=== PATIENT | male | born 1960 | race Caucasian/White ===

== ENCOUNTER → 2022-06-16 | Outpatient (CLI) | payer OTHER ==
[~2022-06-16] MED LIST: NORMAL SALINE IV ONE; [UNRECOGNIZED DRUG - OTHER] IV ONE
[2022-06-16 13:48] VITALS: BP 105/68
== END ==
LOC: SDC 12:43
PROVIDERS: ATTEND Internal Medicine Gastroenterology
DX: K50.90 Crohn's disease, unspecified, without complications (principal)
CPT/HCPCS: 96365

== ENCOUNTER 2023-10-13 19:58 | Emergency (ER) | payer OTHER ==
[~2023-10-13] VITALS: Ht 177.8 cm; Wt 63.5 kg
[2023-10-13] MEDS ORDERED: NS IV 1000 ML 2,000 ML ONE (20:25)
[2023-10-13] MEDS ORDERED: NS IV 1000 ML 1,000 ML IV STA ×2 (20:25→20:38)
--- NOTE | 2023-10-13 20:29 | ED General ---
General Chief Complaint: Dizziness/Syncope Stated Complaint: SYNCOPAL EPISODE/ABD PAIN Nursing Triage Note: PT ARRIVED POV WITH CC OF SYNCOPAL EPISODE TODAY. PT STATES THAT HE HAS BEEN WEAK AND UNABLE TO EAT. PT WAS DIAGNOSISED WITH PANCREATIC CANCER 2 YEARS AGO. STENT WAS PLACED LAST WEEK AT AND PT WAS DISCHARGED ON MONDAY. Source of Information: Patient, Family (simon) Exam Limitations: No Limitations History of Present Illness Date Seen by Provider: Oct 13, 2023 Time Seen by Provider: 20:21 Initial Comments Patient is a 63-year-old male with a history of pancreatic cancer for the last 3 years, recent stent placement in his pancreas this past week at . His niece is with him in the emergency department and states that she went over to check on him this evening and found that he had fallen. Apparently he had had a syncopal episode. He states he has been weak and unable to eat or drink very much since the stent placement. He states he has been very constipated as well but did have a bowel movement today. He denies black or bloody stool. He has not vomited any blood that he is aware of. He denies productive cough. His main complaint is feeling generally weak, generalized abdominal discomfort. He has not been taking any pain medications at home. According to his niece he was recently on hospice but "fired them" in the last couple of days. Later told his niece that he would like to restart hospice on Monday of next week. He is a DNR/DNI. Timing/Duration: 3-4 Days Severity: Severe Associated Systoms: Loss of Appetite, Malaise, Syncope, Weakness, Other (abdominal pain) Allergies and Home Medications Allergies Coded Allergies: Penicillins (Unverified Allergy, Intermediate, rash, 06/16/22) Patient Home Medication List Home Medication List Reviewed: Yes Ondansetron (Ondansetron Odt) 4 Mg Tab.rapdis, 4 MG SL Q6H PRN for NAUSEA/VOMITING Prescribed by: LOWELL WEINER on 10/13/232201 Review of Systems Review of Systems Constitutional: see HPI, malaise, weakness EENTM: no symptoms reported Respiratory: no symptoms reported Cardiovascular: no symptoms reported Gastrointestinal: abdominal pain, constipation, loss of appetite Genitourinary: no symptoms reported Musculoskeletal: no symptoms reported Skin: no symptoms reported Past Mcjhjme-Amattp-Jgkspn Hx Patient Social History Tobacco Use?: Yes Tobacco type used: Cigarettes Substance use?: No Alcohol Use?: No Past Medical History Surgery/Hospitalization HX: cancer Physical Exam Vital Signs Vital Signs - First Documented 10/13/23 20:16 Pulse 88 B/P (MAP) 76/54 (61) Pulse Ox 98 O2 Delivery Room Air Capillary Refill : Height, Weight, BMI Height: '" Weight: lbs. oz. kg; 20.00 BMI Method: General Appearance: Chronically ill, Thin Eyes: Bilateral Eye Conjunctivae Pale HEENT: Other (dry oral mucosa) Respiratory: Lungs Clear Cardiovascular: Regular Rate, Rhythm, Normal Peripheral Pulses Gastrointestinal: Soft, Tenderness (diffuse mild tenderness; no distension; normnal BS) Extremity: Normal Range of Motion Neurologic/Psychiatric: Alert, Oriented x3, No Motor/Sensory Deficits Skin: Warm/Dry, Pallor Focused Exam Lactate Level 10/13/23 20:15: Lactic Acid Level 1.91 Lactic Acid Level Laboratory Tests Test 10/13/23 20:15 Lactic Acid Level 1.91 MMOL/L (0.50-2.00) Progress/Results/Core Measures Suspected Sepsis SIRS Temperature: Pulse: 88 Respiratory Rate: Laboratory Tests 10/13/23 20:15: White Blood Count 11.0 Blood Pressure 76 /54 Mean: 61 10/13/23 20:15: Lactic Acid Level 1.91 Laboratory Tests 10/13/23 20:15: Creatinine 0.80, INR Comment 1.0, Platelet Count 325, Total Bilirubin 0.4 Results/Orders Lab Results Laboratory Tests Test 10/13/23 20:15 Range/Units White Blood Count 11.0 4.3-11.0 10^3/uL Red Blood Count 2.99 L 4.30-5.52 10^6/uL Hemoglobin 8.2 L 13.3-17.7 g/dL Hematocrit 25 L 40-54 % Mean Corpuscular Volume 84 80-99 fL Mean Corpuscular Hemoglobin 27 25-34 pg Mean Corpuscular Hemoglobin Concent 33 32-36 g/dL Red Cell Distribution Width 15.9 H 10.0-14.5 % Platelet Count 325 130-400 10^3/uL Mean Platelet Volume 10.5 9.0-12.2 fL Immature Granulocyte % (Auto) 0 % Neutrophils (%) (Auto) 60 42-75 % Lymphocytes (%) (Auto) 28 12-44 % Monocytes (%) (Auto) 10 0-12 % Eosinophils (%) (Auto) 1 0-10 % Basophils (%) (Auto) 0 0-10 % Neutrophils # (Auto) 6.7 1.8-7.8 10^3/uL Lymphocytes # (Auto) 3.1 1.0-4.0 10^3/uL Monocytes # (Auto) 1.1 H 0.0-1.0 10^3/uL Eosinophils # (Auto) 0.2 0.0-0.3 10^3/uL Basophils # (Auto) 0.0 0.0-0.1 10^3/uL Immature Granulocyte # (Auto) 0.0 0.0-0.1 10^3/uL Prothrombin Time 13.1 12.2-14.7 SEC INR Comment 1.0 0.8-1.4 Activated Partial Thromboplast Time 36 H 24-35 SEC Sodium Level 132 L 135-145 MMOL/L Potassium Level 3.9 3.6-5.0 MMOL/L Chloride Level 101 98-107 MMOL/L Carbon Dioxide Level 21 21-32 MMOL/L Anion Gap 10 5-14 MMOL/L Blood Urea Nitrogen 16 7-18 MG/DL Creatinine 0.80 0.60-1.30 MG/DL Estimat Glomerular Filtration Rate 99 BUN/Creatinine Ratio 20 Glucose Level 175 H 70-105 MG/DL Lactic Acid Level 1.91 0.50-2.00 MMOL/L Calcium Level 7.9 L 8.5-10.1 MG/DL Corrected Calcium 8.5 8.5-10.1 MG/DL Total Bilirubin 0.4 0.1-1.0 MG/DL Aspartate Amino Transf (AST/SGOT) 28 5-34 U/L Alanine Aminotransferase (ALT/SGPT) 21 0-55 U/L Alkaline Phosphatase 75 40-136 U/L Total Protein 5.8 L 6.4-8.2 GM/DL Albumin 3.2 3.2-4.5 GM/DL My Orders Orders - LOWELL WEINER MD Ns Iv 1000 Ml (Ns Iv 1000 Ml) (10/13/23 20:25) Cbc And Automated Diff (10/13/23 20:25) Comprehensive Metabolic Panel (10/13/23 20:25) Blood Culture (10/13/23 20:25) Sputum Culture (10/13/23 20:25) Urinalysis (10/13/23 20:25) Urine Culture (10/13/23:) Protime With Inr (10/13/23 20:25) Partial Thromboplastin Time (10/13/23 20:25) Chest 1 View, Ap/Pa Only (10/13/23 20:25) Ed Iv/Invasive Line Start (10/13/23 20:25) Ed Iv/Invasive Line Start (10/13/23 20:25) Vital Signs Adult Sepsis Patie Q15M (10/13/23 20:25) O2 (10/13/23:) Remove Rings In Anticipation O (10/13/23:) Lactic Acid Analyzer (10/13/23 20:) Ns Iv 1000 Ml (Ns Iv 1000 Ml) (10/13/23 20:25) Ns Iv 1000 Ml (Ns Iv 1000 Ml) (10/13/23 20:38) Vital Signs/I&O 10/13/23 10/13/23 20:16 21:59 Pulse 88 80 B/P (MAP) 76/54 (61) 104/66 Pulse Ox 98 99 O2 Delivery Room Air Room Air Capillary Refill : Blood Pressure Mean: 61 Progress Note : Time: 21:59 Progress Note Patient seen and evaluated by me. Evaluation today includes history and physical exam, CBC, Chem-12, coags, EKG and single view chest x-ray with blood cultures and lactic acid. Pertinent physical exam findings, chronically ill- appearing thin male who is pale with slightly low blood pressures in the mid 70s to low 80s systolic, not tachycardic. He is not hypoxic, he is afebrile. Dry oral mucosa, pale conjunctive a. Regular heart rhythm, clear lungs. Soft nondistended abdomen that is diffusely mildly tender. Mentating normally, no focal neurologic deficits. Differential diagnosis includes sepsis, pneumonia, ileus, urinary tract infection, dehydration/SOLA, biliary stent blockage Labs, EKG and chest x-ray independently reviewed and interpreted by me. He has a total white blood cell count of 11.0, anemia with a hemoglobin of 8.2 hematocrit of 25, platelets of 325. His Chem-12 is pertinent for an elevated glucose at 175, normal electrolytes, normal liver functions, normal renal function. His lactic acid is 1.91. Coags show PT of 13.1 INR of 1 and PTT of 36. EKG is normal sinus rhythm without ectopy or ST segment change. His chest x-ray shows chronic changes without infiltrate or effusion. He is treated in the emergency department with 2 L of normal saline. He has significant improvement in his symptoms. His pain is much improved after IV fluids. He has no vomiting in the department or other deterioration in his condition. Patient does not want to be admitted to the hospital. He was unable to provide a urine sample and as he has not been symptomatic of urinary tract infection in the last 12 to 24 hours I do not think that this would change any plan of care. He anticipates reassigning with hospice in 3 days, on Monday. He states that he has pain medication at home from a dental procedure within the last few months. He declines any new prescriptions for pain medicines. I did send a prescription for ondansetron to his pharmacy for nausea. I encouraged oral hydration. No concerning findings for sepsis, pneumonia would indicate potential surgical issue. Consideration for CT however his history and physical do not support the need at this time. Return precautions provided in both verbal and written format. All questions are sought and answered. Patient is improved at discharge. ECG Initial ECG Impression Date: Oct 13, 2023 Initial ECG Impression Time: 20:26 Initial ECG Rate: 82 Initial ECG Rhythm: Normal Sinus Initial ECG Intervals [place] 179 QRS 133 QTc 447 Comment LBBB Diagnostic Imaging Diagonstic Imaging: Xray Plain Films/CT/US/NM/MRI: chest Comments [facility]. [place], [place] NAME: JOHNNIE [facility]DRIDGE [facility] REC#: [id number] PT STATUS: REG ER : 1960 PHYSICIAN: LOWELL WEINER MD ADMIT DATE: 10/13/23/ER Draft Date of Exam:10/13/23 CHEST 1 VIEW, AP/PA ONLY INDICATION: Syncopal episode, shortness of breath and generalized malaise. History of pancreatic cancer. COMPARISON: None. FINDINGS: Single view chest shows normal heart, pleura and diaphragms. Some background chronic parenchymal changes are seen. There is some mild COPD. There is no acute consolidation. There is no effusion or pneumothorax. Soft tissues and bony thorax are grossly unremarkable. There is some mild bilateral shoulder arthropathy. IMPRESSION: Chronic parenchymal changes but no evidence of acute cardiopulmonary disease. There is mild bilateral shoulder arthropathy seen. Dictated on workstation # [id number] Dict: 10/13/232103 Trans: 10/13/232113 PJE [id number] Interpreted by: TONY DE LA ROSA MD Electronically signed by: Departure Impression Primary Impression: Dehydration Additional Impression: Pancreatic cancer Qualified Codes: C25.9 - Malignant neoplasm of pancreas, unspecified Disposition: HOME, SELF-CARE Condition: Improved Departure-Patient Inst. Decision time for Depature: 21:59 Referrals: BHAVIN VEGA MD (PCP/Family) Primary Care Physician Patient Instructions: Dehydration, Adult ED Add. Discharge Instructions: Drink plenty of fluids to stay well hydrated. Nausea medications - Ondansetron (Zofran) 4mg tablets every 6-8 hours as needed for nausea. Use your hydrocodone at home every 6 hours as needed for pain. Follow up with your primary care doctor as scheduled/needed. Return to the Emergency Department for re-evaluation if you have any new, emergent or concerning symptoms. Scripts Ondansetron (Ondansetron Odt) 4 Mg Tab.rapdis 4 MG SL Q6H PRN for NAUSEA/VOMITING, #20 TAB Prov: LOWELL WEINER MD 10/13/23 Copy Copies To 1: BHAVIN VEGA MD, KATHRYN M MD Oct 13, 2023 20:28
[2023-10-13 20:35] LABS: BASOPHILS % (AUTO) 0 % (0-10); EOSINOPHILS # (AUTO) 0.2 10^3/uL (0.0-0.3); EOSINOPHILS % (AUTO) 1 % (0-10); HEMATOCRIT 25 % (40-54); HEMOGLOBIN 8.2 g/dL (13.3-17.7); LYMPHOCYTES # (AUTO) 3.1 10^3/uL (1.0-4.0); LYMPHOCYTES % (AUTO) 28 % (12-44); MEAN CORPUSCULAR HEMOGLOBIN 27 pg (25-34); MEAN CORPUSCULAR HGB CONC 33 g/dL (32-36); MEAN CORPUSCULAR VOLUME 84 fL (80-99); MEAN PLATELET VOLUME 10.5 fL (9.0-12.2); MONOCYTES # (AUTO) 1.1 10^3/uL (0.0-1.0); MONOCYTES % (AUTO) 10 % (0-12); NEUTROPHILS # (AUTO) 6.7 10^3/uL (1.8-7.8); NEUTROPHILS % (AUTO) 60 % (42-75); PLATELET COUNT 325 10^3/uL (130-400)
[2023-10-13 20:40] LABS: PROTHROMBIN TIME PATIENT 13.1 SEC (12.2-14.7)
[2023-10-13 20:49] LABS: ALBUMIN 3.2 GM/DL (3.2-4.5); BILIRUBIN,TOTAL 0.4 MG/DL (0.1-1.0); CALCIUM 7.9 MG/DL (8.5-10.1); CREATININE SERUM 0.8 MG/DL (0.60-1.30); POTASSIUM 3.9 MMOL/L (3.6-5.0); TOTAL PROTEIN 5.8 GM/DL (6.4-8.2)
--- NOTE | 2023-10-13 21:14 | Diagnostic Imaging Report ---
INDICATION: Syncopal episode, shortness of breath and generalized malaise. History of pancreatic cancer. COMPARISON: None. FINDINGS: Single view chest shows normal heart, pleura and diaphragms. Some background chronic parenchymal changes are seen. There is some mild COPD. There is no acute consolidation. There is no effusion or pneumothorax. Soft tissues and bony thorax are grossly unremarkable. There is some mild bilateral shoulder arthropathy. IMPRESSION: Chronic parenchymal changes but no evidence of acute cardiopulmonary disease. There is mild bilateral shoulder arthropathy seen. Dictated by: Dictated on workstation # [id number]
[2023-10-13 21:59] VITALS: BP 104/66
[2023-10-13] MEDS ORDERED: ONDA4TAB11 SL (22:02)
== END 2023-10-13 22:11 | disposition home or self-care (01) ==
LOC: EDUNIT# 19:58 → ER 20:00
DX: E86.0 Dehydration (principal); C25.9 Malignant neoplasm of pancreas, unspecified
CPT/HCPCS: 36415; 71045; 80053; 83605; 85025; 85610; 85730; 87040; 93005; 96360